=== PATIENT | female | born 1990 | race Two or more races ===

== ENCOUNTER 2019-06-11 11:30 | Emergency (ER) | payer MEDICAID ==
[~2019-06-11] VITALS: Ht 172.7 cm; Wt 65.0 kg
[2019-06-11 11:40] VITALS: BP 126/80
== END 2019-06-11 15:47 | disposition home or self-care (01) ==
LOC: ED 15:40
DX: L24.9 Irritant contact dermatitis, unspecified cause (principal); L20.84 Intrinsic (allergic) eczema
CPT/HCPCS: 99282